=== PATIENT | female | born 1995 | race African-American/Black ===

== ENCOUNTER 2022-02-23 20:14 | Emergency (ER) | payer SELFPAY ==
[~2022-02-23] VITALS: Ht 162.6 cm; Wt 73.0 kg
[2022-02-23 20:45] VITALS: BP 135/77
[2022-02-23] MEDS ORDERED: ACETAMINOPHEN 325MG TABLET PO ONE (20:45)
[2022-02-23] MEDS ORDERED: IBUPROFEN 400MG TABLET PO ONE (20:45)
== END 2022-02-23 23:58 | disposition home or self-care (01) ==
LOC: ER 20:14
DX: M25.572 Pain in left ankle and joints of left foot (principal); M25.532 Pain in left wrist; W01.0XXA Fall on same level from slipping, tripping and stumbling without subsequent striking against object, initial encounter; Y93.89 Activity, other specified; Y92.813 Airplane as the place of occurrence of the external cause
CPT/HCPCS: 29515; 73100; 73610; 81025; 99284